=== PATIENT | male | born 1955 | race Caucasian/White ===

== ENCOUNTER 2017-10-29 19:04 | Emergency (ER) | payer BC ==
[~2017-10-29] VITALS: Ht 167.6 cm; Wt 82.0 kg
[2017-10-29] MEDS ORDERED: PRAVASTATIN SOD40 MG PO (20:55)
[2017-10-29] MEDS ORDERED: LOSARTAN POTAS100 MG PO (20:56)
[2017-10-29] MEDS ORDERED: FISH OIL 1,2001 EAC3 PO (20:56)
[2017-10-29] MEDS ORDERED: ONE DAILY FOR1 EACH PO (20:56)
[2017-10-29] MEDS ORDERED: ASPIR-LOW81 MG PO (20:57)
[2017-10-29 21:40] VITALS: BP 164/83
== END 2017-10-29 21:45 | disposition home or self-care (01) ==
LOC: EME 19:04
PROC: 3E0234Z Introduction of Serum, Toxoid and Vaccine into Muscle, Percutaneous Approach (ICD-10-PCS; principal; 2017-10-29)
PROC: 0HQ1XZZ Repair Face Skin, External Approach (ICD-10-PCS; principal; 2017-10-29)
DX: S01.81XA Laceration without foreign body of other part of head, initial encounter (principal); S50.01XA Contusion of right elbow, initial encounter; W10.9XXA Fall (on) (from) unspecified stairs and steps, initial encounter; Y93.01 Activity, walking, marching and hiking; Z79.82 Long term (current) use of aspirin; Z23 Encounter for immunization; I10 Essential (primary) hypertension
CPT/HCPCS: 73080; 99281; 99285